=== PATIENT | female | born 1990 | race Asian ===

== ENCOUNTER 2016-04-27 08:13 | Outpatient (CLI) | payer OTHER | END 2016-04-27 19:55 | disposition home or self-care (01) | LOC: US 08:13 | DX: R10.11 Right upper quadrant pain (principal) ==

== ENCOUNTER 2018-04-14 05:32 | Emergency (ER) | payer OTHER ==
[~2018-04-14] VITALS: Ht 160 cm; Wt 72.6 kg
[2018-04-14 06:19] LABS: PLATELET COUNT 309 K/uL (152-353)
[2018-04-14 06:24] LABS: POTASSIUM 4.2 mmol/L (3.6-5.2)
[2018-04-14 07:08] VITALS: BP 128/79; TEMP 97.7
== END 2018-04-14 07:09 | disposition home or self-care (01) ==
LOC: ED 05:32
PROVIDERS: Family Medicine
DX: K29.70 Gastritis, unspecified, without bleeding (principal); K21.9 Gastro-esophageal reflux disease without esophagitis
CPT/HCPCS: 36415; 80053; 81000; 81025; 82150; 83690; 85027; 99283

== ENCOUNTER 2019-07-02 23:46 | Emergency (ER) | payer OTHER ==
[~2019-07-02] VITALS: Ht 160 cm; Wt 74.8 kg
[2019-07-03 01:03] VITALS: BP 128/68; TEMP 98.3
== END 2019-07-03 01:03 | disposition home or self-care (01) ==
LOC: ED 23:46
DX: K02.9 Dental caries, unspecified (principal)
CPT/HCPCS: 99282